=== PATIENT | female | born 1950 | race Caucasian/White ===

== ENCOUNTER → 2016-09-10 | Outpatient (CLI) | payer MEDICARE, BC | LOC: MC.RAD 10:58 | DX: Z12.31 Encounter for screening mammogram for malignant neoplasm of breast (principal) ==

== ENCOUNTER → 2017-11-10 | Outpatient (CLI) | payer MEDICARE, BC | LOC: MC.RAD 07:40 | DX: Z12.31 Encounter for screening mammogram for malignant neoplasm of breast (principal) ==

== ENCOUNTER → 2018-02-25 | Outpatient (CLI) | payer MEDICARE, BC | LOC: COL.VAS 02-24 10:00 | DX: Z82.3 Family history of stroke (principal) ==

== ENCOUNTER 2018-06-22 11:41 | Outpatient (CLI) | payer MEDICARE, BC ==
[~2018-06-22] VITALS: Ht 162.7 cm; Wt 31.8 kg
[2018-06-22] MEDS ORDERED: TURMERIC500 MG PO (12:12)
[2018-06-22] MEDS ORDERED: MULTI VITAMINS1 TAB PO (12:12)
[2018-06-22] MEDS ORDERED: ASPIRIN E.C. 8181 MG PO (12:13)
[2018-06-22] MEDS ORDERED: CALCIUM CARBON650 M2 PO (12:13)
[2018-06-22 12:17] LABS: HEMATOCRIT 39.5 % (37.0-47.0); HEMOGLOBIN 13.4 g/dl (12.5-16.0); MEAN CELL VOLUME 90 fl (80.0-100.0); MEAN CORPUSCULAR HEMOGLOBIN 31 pg (27.0-31.0); MEAN CORPUSCULAR HGB CONC 34 g/dl (33.0-37.0); MEAN PLATELET VOLUME 9.1 fl (7.4-10.4); PLATELET COUNT 250 K/mm3 (130-400); RED BLOOD COUNT 4.39 M/mm3 (4.10-5.30); REDCELL DISTRIBUTION WIDTH-CV 12.2 % (11.5-14.5)
[2018-06-22 12:23] LABS: PROTHROMBIN TIME 11.6 SECONDS (9.7-12.8)
[2018-06-22 12:25] VITALS: BP 119/72; PULSE 65; TEMP 97
[2018-06-22 12:26] LABS: CALCIUM 9.6 mg/dL (8.4-10.2); CREATININE, serum 0.79 mg/dL (0.52-1.25)
[2018-06-22 13:50] VITALS: BP 118/79; PULSE 71
[2018-06-22 14:05] VITALS: BP 126/83; PULSE 75
[2018-06-22 14:20] VITALS: BP 135/73; PULSE 68; TEMP 97
== END 2018-06-22 14:53 | disposition home or self-care (01) ==
LOC: COL.RAD 11:41
PROVIDERS: Internal Medicine Interventional Cardiology
DX: I34.0 Nonrheumatic mitral (valve) insufficiency (principal); R93.1 Abnormal findings on diagnostic imaging of heart and coronary circulation
CPT/HCPCS: J0330; J2704; J7030

== ENCOUNTER → 2019-10-17 | Outpatient (CLI) | payer MEDICARE, BC ==
[~2019-10-17] MED LIST: ASPIRIN E.C. 8181 MG PO; CALCIUM CARBON650 M2 PO; MULTI VITAMINS1 TAB PO; TURMERIC500 MG PO
== END ==
LOC: MC.RAD 10-13 08:45
DX: Z12.31 Encounter for screening mammogram for malignant neoplasm of breast (principal)

== ENCOUNTER → 2021-05-06 | Outpatient (CLI) | payer MEDICARE, BC | LOC: COL.RAD 12:57 | DX: K57.30 Diverticulosis of large intestine without perforation or abscess without bleeding (principal); K63.89 Other specified diseases of intestine; K62.5 Hemorrhage of anus and rectum; Z90.710 Acquired absence of both cervix and uterus | CPT/HCPCS: Q9967 ==